=== PATIENT | male | born 1960 | race Caucasian/White ===

== ENCOUNTER 2020-08-03 11:19 | Emergency (ER) | payer OTHER, BC, SELFPAY ==
--- NOTE | ~2020-08-03 | XR_ITS ---
EXAMINATION: XR thoracic spine 3V DATE: 08/03/2020 13:16 INDICATION: Thoracic back pain. TECHNIQUE: 3 views of thoracic spine were obtained. COMPARISON: Chest 2 views 02/04/16 FINDINGS: There is 14 degrees dextroscoliosis of thoracic spine. Vertebral body heights are normal. T here is mildly decreased disc height at T7-T8. There are endplate osteophytes at most levels. IMPRESSION: 1. Mild thoracic spondylosis. 2. Thoracic dextroscoliosis. Reviewed, dictated and finalized at location A.
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
[2020-08-03 11:35] VITALS: BP 146/92; PULSE 78; RESP 14; TEMP 36.8; O2SAT 97
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
[2020-08-03 14:52] VITALS: BP 122/68; PULSE 80; RESP 18; O2SAT 98
== END 2020-08-03 14:54 | disposition home or self-care (01) ==
PROVIDERS: Emergency Provider Emergency Medicine; PCP Internal Medicine
DX: S16.1XXA Strain of muscle, fascia and tendon at neck level, initial encounter (principal); S29.012A Strain of muscle and tendon of back wall of thorax, initial encounter; S39.012A Strain of muscle, fascia and tendon of lower back, initial encounter; S46.911A Strain of unspecified muscle, fascia and tendon at shoulder and upper arm level, right arm, initial encounter; M47.816 Spondylosis without myelopathy or radiculopathy, lumbar region; M19.011 Primary osteoarthritis, right shoulder; M47.812 Spondylosis without myelopathy or radiculopathy, cervical region; M47.814 Spondylosis without myelopathy or radiculopathy, thoracic region; V64.5XXA Driver of heavy transport vehicle injured in collision with heavy transport vehicle or bus in traffic accident, initial encounter
CPT/HCPCS: 72050; 72072; 72110; 73030; 99284

== ENCOUNTER 2021-03-20 08:55 | Outpatient (CLI) | payer BC, SELFPAY ==
[2021-03-20 09:14] LABS: Basophils Percent Auto 0.4 % (0.2-1.2); Eosinophils Absolute Auto 0.1 K/mm3 (0-0.3); Eosinophils Percent Auto 1.1 % (0-4.4); Hematocrit 46.5 % (42.0-52.0); Hemoglobin 16.2 g/dL (14.0-18.0); Immature Granulocyte Absolute 0.02 K/mm3 (0.00-0.031); Immature Granulocyte Percent A 0.3 % (0-0.5); Lymphocytes Absolute Auto 1.75 K/mm3 (0.9-3.2); Mean Corpuscular HGB Conc 34.8 g/dl (32-36); Mean Corpuscular Hemoglobin 31.5 pg (26-34); Mean Corpuscular Volume 90.3 fl (80-100); Mean Platelet Volume 10.8 fl (7.4-10.4); Monocytes Absolute Auto 0.8 K/mm3 (0.1-0.6); Monocytes Percent Auto 10.9 % (2.6-8.5); Neutrophils Absolute Auto 4.4 K/mm3 (1.3-6.7); Neutrophils Percent Auto 62.3 % (45.5-73.1); Platelet Count Result 262 k/mm3 (150-375); Red Blood Count 5.15 M/mm3 (4.6-6.20); Red Cell Distribution Width 12.1 % (11.5-14.5)
[2021-03-20 09:22] LABS: Hemoglobin A1C 12.5 % (<5.7)
[2021-03-20 09:25] LABS: Alanine Aminotransferase 22 U/L (4-50); Albumin Level 4.4 g/dL (3.5-5.1); Alkaline Phosphatase 63 U/L (38-126); Anion Gap 9 mmol/L (8-16); Aspartate Amino Transferase 28 U/L (17-59); Bilirubin,Total 1.1 mg/dL (0.2-1.3); Blood Urea Nitrogen 18 mg/dL (9-20); Calcium 9.5 mg/dL (8.4-10.2); Carbon Dioxide 28 mmol/L (22-30); Chloride 100 mmol/L (98-107); Cholesterol 147 mg/dL (0-200); Estimated Glomerular Filt Rate > 60; Glucose 285 mg/dL (75-110); HDL Direct 52 mg/dL; Potassium 4.2 mmol/L (3.4-5.0); Sodium 137 mmol/L (137-145); Triglycerides 79 mg/dL (<150)
[2021-03-20 09:36] LABS: LDL Cholesterol Direct 70 mg/dL
[2021-03-20 09:55] LABS: Prostate Specific Antigen 0.4 ng/mL (< OR = 4.0)
== END 2021-03-20 08:56 | disposition home or self-care (01) ==
PROVIDERS: PCP Internal Medicine; Visit Provider Nurse Practitioner
DX: Z12.5 Encounter for screening for malignant neoplasm of prostate (principal); E11.9 Type 2 diabetes mellitus without complications
CPT/HCPCS: 36415; 80053; 80061; 83036; 84153; 85025; G0103

== ENCOUNTER 2021-06-26 08:12 | Outpatient (CLI) | payer BC, SELFPAY ==
[2021-06-26 08:54] LABS: Hemoglobin A1C 7.2 % (<5.7)
== END 2021-06-26 08:13 | disposition home or self-care (01) ==
PROVIDERS: PCP Internal Medicine; Visit Provider Clinical Nurse Specialist
DX: E11.9 Type 2 diabetes mellitus without complications (principal)
CPT/HCPCS: 36415; 83036

== ENCOUNTER 2021-09-27 08:05 | Outpatient (CLI) | payer BC, SELFPAY ==
[2021-09-27 08:44] LABS: Hemoglobin A1C 6.5 % (<5.7)
[2021-09-27 08:56] LABS: Creatinine Urine 168.7 mg/dL
[2021-09-27 09:01] LABS: MALB Creatinine Ratio 19.9 mg/g (0-30); Microalbumin Urine Random 33.5 mg/L (0-16.7)
== END 2021-09-27 08:06 | disposition home or self-care (01) ==
LOC: ANHLAB 08:08
PROVIDERS: PCP Internal Medicine; Visit Provider Clinical Nurse Specialist
DX: E11.9 Type 2 diabetes mellitus without complications (principal)
CPT/HCPCS: 36415; 82043; 83036

== ENCOUNTER 2022-03-21 06:35 | Outpatient (CLI) | payer BC, SELFPAY ==
[2022-03-21 07:23] LABS: Basophils Percent Auto 0.6 % (0.2-1.2); Eosinophils Absolute Auto 0.1 K/mm3 (0-0.3); Eosinophils Percent Auto 1.7 % (0-4.4); Hematocrit 44.1 % (42.0-52.0); Hemoglobin 15.8 g/dL (14.0-18.0); Immature Granulocyte Absolute 0.02 K/mm3 (0.00-0.031); Immature Granulocyte Percent A 0.3 % (0-0.5); Lymphocytes Absolute Auto 1.93 K/mm3 (0.9-3.2); Lymphocytes Percent Auto 26.6 % (18.3-44.2); Mean Corpuscular HGB Conc 35.8 g/dl (32-36); Mean Corpuscular Hemoglobin 31.8 pg (26-34); Mean Corpuscular Volume 88.7 fl (80-100); Mean Platelet Volume 10.2 fl (7.4-10.4); Monocytes Absolute Auto 0.8 K/mm3 (0.1-0.6); Monocytes Percent Auto 10.7 % (2.6-8.5); Neutrophils Absolute Auto 4.4 K/mm3 (1.3-6.7); Neutrophils Percent Auto 60.1 % (45.5-73.1); Platelet Count Result 259 k/mm3 (150-375); Red Blood Count 4.97 M/mm3 (4.6-6.20); Red Cell Distribution Width 12.4 % (11.5-14.5); White Blood Count 7.3 K/mm3 (4.5-10.0)
[2022-03-21 07:32] LABS: Hemoglobin A1C 7.3 % (<5.7)
[2022-03-21 07:39] LABS: Alanine Aminotransferase 22 U/L (6-50); Albumin Level 4.4 g/dL (3.5-5.1); Alkaline Phosphatase 55 U/L (38-126); Anion Gap 7 mmol/L (8-16); Aspartate Amino Transferase 24 U/L (17-59); Blood Urea Nitrogen 16 mg/dL (9-20); Carbon Dioxide 28 mmol/L (22-30); Chloride 102 mmol/L (98-107); Cholesterol 150 mg/dL (0-200); Estimated Glomerular Filt Rate > 60; Glucose 162 mg/dL (65-110); HDL Direct 53 mg/dL; Potassium 3.8 mmol/L (3.4-5.0); Sodium 137 mmol/L (137-145); Triglycerides 73 mg/dL (<150)
[2022-03-21 07:50] LABS: LDL Cholesterol Direct 76 mg/dL
[2022-03-21 08:08] LABS: Prostate Specific Antigen 0.7 ng/mL (< OR = 4.0)
== END 2022-03-21 06:36 | disposition home or self-care (01) ==
LOC: ANHLAB 06:37
PROVIDERS: PCP Internal Medicine; Visit Provider Nurse Practitioner
DX: Z12.5 Encounter for screening for malignant neoplasm of prostate (principal); E11.9 Type 2 diabetes mellitus without complications
CPT/HCPCS: 36415; 80053; 80061; 82607; 82746; 83036; 84153; 85025; G0103

== ENCOUNTER 2022-08-08 00:58 | Day surgery (SDC) | payer BC, SELFPAY ==
--- NOTE | 2022-08-05 14:25 | PM.HPGS ---
History of Present Illness History of Present Illness Consent: Risks, benefits, and alternatives have been discussed and questions answered. Patient agrees to proceed with procedure. Chief complaint: family hx colon ca, hx colon polyps Narrative: Andrew Godinez is a 61 year old male referred for colon cancer screening. In 2012 he had 7 polyps removed most of which were adenomas. also, his father from colon cancer. Review of Systems Review of Systems: All systems reviewed & are unremarkable except as noted in HPI and below PMFSH Past Medical History Medical History Edema Hypertension Radiculopathy Surgical History Surgical History History of appendectomy Family History Family History Father Cancer Mother Diabetes mellitus Social History Social History Smoking status: Never smoker Alcohol intake: never Substance use: never Substance use type: does not use Living arrangements: alone Spiritual care concerns: No Meds Home Medications and Allergies Home Medications Medication Instructions Recorded Confirmed Type blood-glucose meter (Blood Glucose #1 ea 03/25/21 03/28/22 Rx Monitoring kit) blood-glucose meter (OneTouch 04/26/21 03/28/22 History Ultra2 Meter) blood sugar diagnostic (OneTouch #100 strips 05/03/22 Rx Ultra Test strips) Allergies Allergy/AdvReac Type Severity Reaction Status Date / Time No Known Allergies Allergy Verified 08/08/22 06:44 Exam Const: General: alert Orientation/consciousness: patient oriented x3 Resp: Auscultation: clear to auscultation bilaterally Cardio: Rhythm: regular rhythm GI: GI Palp: Yes Soft to palpation and No Tenderness to palpation present (GI) Neuro: General: patient oriented x3 Assessment and Plan Assessment and plan (1) Colon cancer screening: Code(s): Z12.11 - Encounter for screening for malignant neoplasm of colon Status: Acute Assessment and Plan: Colonoscopy with possible biopsy or polypectomy or cautery or injection of substances.
[2022-08-08 06:46] VITALS: BP 127/98; PULSE 77; RESP 18; TEMP 36.3; O2SAT 98; BMI 27.6
[2022-08-08] MEDS: LACTATED RINGERS 1,000 ML 150 ML IV CONT (06:57)
[2022-08-08 07:02] LABS: Glucose Point of Care 194 mg/dl (65-105)
--- NOTE | 2022-08-08 07:16 | P.PNAN_ITS ---
Anes - Initial Pre Proc Eval Procedure: Operation Date: 08/08/22 08:00 Proposed Procedures p Screening Colonoscopy - Bob Villar MD Date/Time: 08/08/22 07:16 Surgeon: Bob Villar MD Pre Op Diagnosis: family hx colon ca, hx colon polyps Patient Data Age: 61 Gender: M Height: 1.91 m Weight: 100.2 kg Last Vital Signs Temp 36.3 C L 08/08/22 06:46 Pulse 77 08/08/22 06:46 Resp 18 08/08/22 06:46 BP 127/98 H 08/08/22 06:46 Pulse Ox 98 08/08/22 06:46 O2 Del Method Room Air 08/08/22 06:46 Allergies Allergy/AdvReac Type Severity Reaction Status Date / Time No Known Allergies Allergy Verified 08/08/22 06:44 Home Medications Medication Instructions Recorded Confirmed Type blood-glucose meter (Blood Glucose #1 ea 03/25/21 08/08/22 Rx Monitoring kit) blood-glucose meter (OneTouch 04/26/21 08/08/22 History Ultra2 Meter) blood sugar diagnostic (OneTouch #100 strips 05/03/22 08/08/22 Rx Ultra Test strips) Laboratory Tests 08/08/22 06:56 POC Capillary Glucose 194 mg/dl H mg/dl (65-105) Patient hx anesthesia problems: none Family hx anesthesia problems: none Results Review: All pre-operative results and documents have been reviewed as part of the pre- operative evaluation. [facility] Past Medical History Medical History (Updated 08/08/22 @ 07:16 by Leo Molina MD) Diabetes Edema Hypertension Radiculopathy Surgical History Surgical History History of appendectomy Family History Family History Father Cancer Mother Diabetes mellitus Social History Social History Smoking status: Never smoker Alcohol intake: never Substance use: never Substance use type: does not use Living arrangements: alone Spiritual care concerns: No Anes - Eval Final PreProcedure Day of Procedure 08/08/22 07:16 Patient weight: overweight Heart: regular rate and rhythm Lungs: clear to auscultation Airway: Mallampati scale class II Neurological: alert and oriented Last oral intake: >/= 8 hours ASA classification: II Emergent: no Anesthetic plan: proceed Anesthesia type and monitoring: general GIVS and standard monitoring Results Review: All pre-operative results and documents have been reviewed as part of the pre- operative evaluation. Informed Consent: The patient's anesthetic plan and its attendant risks and benefits were discussed with the patient/family/POA. Questions were solicited and answers provided to the satisfaction of the patient/family/POA.
[2022-08-08 08:22] VITALS: BP 100/71; PULSE 68; RESP 14; O2SAT 94
[2022-08-08 08:32] VITALS: BP 109/69; PULSE 67; RESP 17; O2SAT 96
[2022-08-08 08:42] VITALS: BP 113/81; PULSE 68; RESP 16; O2SAT 96
--- NOTE | 2022-08-08 08:51 | SUR.PHASEII ---
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 denies needs.
== END 2022-08-08 09:00 | disposition home or self-care (01) ==
PROVIDERS: PCP Internal Medicine; Visit Provider Internal Medicine Gastroenterology
PROC: 0DJD8ZZ Inspection of Lower Intestinal Tract, Via Natural or Artificial Opening Endoscopic (ICD-10-PCS; CPT 45378; principal; 2022-08-08 08:00)
DX: Z12.11 Encounter for screening for malignant neoplasm of colon (principal); K64.8 Other hemorrhoids; Z86.010 Personal history of colon polyps; Z80.0 Family history of malignant neoplasm of digestive organs; E11.9 Type 2 diabetes mellitus without complications; I10 Essential (primary) hypertension
CPT/HCPCS: 45378; 82948; J2704; J7120